=== PATIENT | female | born 1950 | race Caucasian/White ===

== ENCOUNTER 2016-10-22 12:12 | Inpatient (IN) | payer MEDICARE ==
--- NOTE | 2016-10-22 11:07 | MH ---
cc: FRANSISCO VERDIN M.D. DATE OF ADMISSION: 10/23/2016 ADMITTING DIAGNOSIS Avascular necrosis of the left hip. HISTORY This patient is a 66-year-old female who had a fall and sustained injury to her left hip. In July of 2012 she had open treatment, internal fixation of the left hip. She had this performed by the undersigned using a trochanteric nail. She had an x-ray that was taken afterwards that showed this apparently went on to heal with some shortening of the left leg compared to the right. She was recently seen with severe, increasing pain. X-ray from 19 September 2016 shows an intramedullary samia in good position. There is evidence of complete collapse of the femoral head consistent with avascular necrosis with collapse. She now presents for surgical treatment. PAST MEDICAL HISTORY, SOCIAL HISTORY, FAMILY HISTORY, REVIEW OF SYSTEMS See attached notes. PHYSICAL EXAMINATION GENERAL: Average build female appearing her stated age. HEENT: Normocephalic, atraumatic. Pupils equal, round, reactive to light and accommodation. Extraocular motions intact. NECK: Supple. CHEST: Clear. HEART: Regular rate and rhythm. ABDOMEN: Soft, nontender with normoactive bowel sounds. MUSCULOSKELETAL EXAMINATION: Well-healed incision laterally over the left hip. Alignment satisfactory. Shortening of the left leg compared to the right. Neurologic and vascular examination is within normal limits. VITAL SIGNS: Height 5.7, weight 150 pounds, BMI 23.5. IMPRESSION 1. Avascular necrosis of the left hip. 2. Status post open treatment, internal fixation left hip fracture in 2012. PLAN Removal of the hardware of the left hip and conversion to total hip replacement arthroplasty. CONSENT There are risks with surgery including infection, bleeding, loss of motion, continued pain, need for further surgery, neurologic and vascular injury. The patient understands these issues and wishes to press on with surgery as outlined above. MD EMI Romero/FRANKLIN /10:48 AM /11:05 AM
[2016-10-23 07:30] VITALS: BP 135/75; PULSE 60; RESP 16; TEMP 97.5; O2SAT 98
[2016-10-23] MEDS ORDERED: INSULIN HUMAN REGULAR 1,000 UNITS/10 ML VIAL SQ PRN (07:30)
[2016-10-23] MEDS ORDERED: LACTATED RINGER'S 1000 ML IV PRN (07:30)
[2016-10-23] MEDS ORDERED: VANCOMYCIN 1000 MG/NS 250 ML (for <70 kg) IV SCH ×2 (07:30)
[2016-10-23] MEDS ORDERED: POVIDONE IODINE 5% (ANTISEPSIS KIT) 4 APPLICATIONS EACH NARE PRN (07:30)
[2016-10-23] MEDS ORDERED: ceFAZolin 2 GM PREMIX 50 ML IV SCH (07:30)
[2016-10-23] MEDS ORDERED: CHLORHEXIDINE GLUCONATE 2 % 1 PACK (2 CLOTHS) TOPICAL PRN (07:30)
[2016-10-23] MEDS ORDERED: METOPROLOL TARTRATE 25 MG TAB PO PRN (07:30)
[2016-10-23] MEDS ORDERED: POVIDONE IODINE 7.5% SCRUB 118 ML BOTTLE TOPICAL SCH (07:30)
[2016-10-23] MEDS ORDERED: SODIUM CHLORID 0.9% 500 ML IV PRN (07:30)
[2016-10-23] MEDS ORDERED: ACETAMINOPHEN 1000 MG/100 ML VIAL IV ONE (08:45)
[2016-10-23] MEDS ORDERED: fentaNYL CITRATE 250 MCG/5 ML AMP ONE ×2 (08:46→13:41)
[2016-10-23] MEDS ORDERED: FAMOTIDINE 20 MG/2 ML VIAL ONE (08:46)
[2016-10-23] MEDS ORDERED: MIDAZOLAM HCL 2 MG/2 ML VIAL ONE (08:46)
[2016-10-23] MEDS ORDERED: DEXAMETHASONE SOD PHOS 4 MG/ML VIAL ONE (08:46)
[2016-10-23] MEDS ORDERED: TRANEXAMIC ACID INJ 670 MG in SODIUM CHLORIDE 0.9% INJ 100 ML IV SCH (09:00)
[2016-10-23] MEDS ORDERED: BUPIVACAINE LIPOSO PF 1.3% INJ 20 ML in SODIUM CHLORIDE 0.9% INJ 40 ML P-ARTICULR SCH (09:00)
[2016-10-23] MEDS ORDERED: ceFAZolin INJ 1,000 MG VIAL ONE (09:36)
[2016-10-23] MEDS ORDERED: GENTAMICIN SULFATE 80 MG/2 ML VIAL IRRIGATION ONE (10:20)
[2016-10-23] MEDS ORDERED: NORMOSOL R INJ 1,000 ML IV ONE (12:00)
[2016-10-23] MEDS ORDERED: PROPOFOL 200 MG/20 ML AMP IV ONE (12:00)
[2016-10-23] MEDS ORDERED: NEOSTIGMINE 3 MG/3 ML SYR IV ONE (12:00)
[2016-10-23] MEDS ORDERED: ONDANSETRON HCL 4 MG/2 ML VIAL IV PUSH ONE (12:00)
[2016-10-23] MEDS ORDERED: LACTATED RINGER'S 1000 ML INJ 2,000 ML IV ONE (12:00)
[2016-10-23] MEDS ORDERED: PHENYLEPH/NS 1000 MCG/10 ML SYR IV ONE (12:00)
[2016-10-23] MEDS ORDERED: MISCELLANEOUS PHARMACY INFORMATION XX ONE (12:15)
[2016-10-23] MEDS ORDERED: TEMAZEPAM 15 MG CAP PO PRN (12:15)
[2016-10-23] MEDS ORDERED: SODIUM CHLORIDE 0.9% FLUSH 5 ML FLUSH IVF PRN (12:15)
[2016-10-23] MEDS ORDERED: MISCELLANEOUS NURSING INFORMATION XX PRN (12:15)
[2016-10-23] MEDS ORDERED: Post-op Orders (for Pharmacy) MISC XX ONE (12:15)
[2016-10-23] MEDS ORDERED: ONDANSETRON HCL 4 MG/2 ML VIAL IVP PRN (12:15)
[2016-10-23] MEDS ORDERED: ALUMINUM/MAGNESIUM/SIMETH 30 ML CUP PO PRN (12:15)
[2016-10-23] MEDS ORDERED: ACETAMINOPHEN/HYDROcodone 325 MG/7.5 MG TAB PO PRN ×2 (12:15)
[2016-10-23] MEDS ORDERED: MORPHINE SULFATE 8 MG/ML INJ IM PRN (12:15)
--- NOTE | 2016-10-23 12:15 | PD.OP ---
cc: Steven Pierce MD Operative Report Date of Surgery: Oct 23, 2016 Preoperative Diagnosis: Avascular necrosis left hip. Status post open treatment internal fixation left femoral neck fracture. Leg length discrepancy Postoperative Diagnosis: Same Procedure: Extended posterior exposure. Removal of internal fixation of the left hip, trochanteric nail. Conversion to left uncemented total hip replacement arthroplasty Anesthesia: Gen. Surgeon: Steven Pierce Institutional Nutrition Consultant(s): KAREN Agustin Operation and Findings: EBL: 700 cc INDICATION: This patient is a 66-year-old female who 4-5 years ago had open treatment of her left hip for a base of the neck femoral neck fracture. This was treated with a trochanteric nail device. Some shortening process that the patient did well on the fracture went on to heal. The patient had progressive pain over a period of 6-8 months. Studies shows evidence of collapse of femoral head consistent with avascular necrosis. She presents now for conversion to total hip replacement arthroplasty. NOTE: Belkys Agustin PA-C was present for the entire surgical procedure as my digital sales assistant. In my medical opinion her skill and care was necessary for the proper management of this patient. COMPONENTS: COMPANY: [employer] CUP: [place], 56 mm, 100 series STEM: Size 9, [place], high offset, uncemented HEAD: 36 mm, +1.5 12/14 taper PROCEDURE: This patient was brought to the operating room and anesthetized in the supine position and positioned on the routine table in the clean air suite. The patient was then rolled to a left t side up lateral position and held with a Biomet hip positioner. The hip and leg was scrubbed with alcohol followed by Hibiclens followed by chloro prep and draped sterilely. A timeout was done and antibiotics were given within a routine time window. A 4 inch incision was made starting along the posterior one third of the greater trochanter. The iliotibial band was opened in line with the incision. The Charnley retractors were positioned. The posterior capsule and external rotators were taken down together in a sleeve. The sciatic nerve was palpated to be free of any obstruction or compression and posterior to the hip joint without any evidence of traction from the retractor. A trochanteric nail device had been utilized. Very carefully in the region of the greater trochanter worked very hard to gain access. A small posterior portion of the greater trochanter fatigued. The top compression device was loosened. The lateral screw was identified and carefully removed from the surrounding tissues. The trochanteric nail device was removed in a retrograde fashion. The neck was cut at the right location. The head was taken back table and sent to pathology. Deep retractors allowed good visualization. A capsulectomy was performed. The patient was short by an inch and a half. The acetabulum was deepened down to the floor starting with a 48 mm reamer and slowly progressively reamed up to 55 mm. A 55 mm cup was trialed. Overall fit was satisfactory. The rim was touched with a 56 mm reamer. The proper cup was placed in approximately 40 of abduction and 30 of forward flexion. The final liner was positioned. Retractors were positioned allowing good visualization of the proximal femur. A box osteotome was utilized followed by progressive broaching for the [place] stem. This was reamed and broached and eventually advanced to a size 9 stem. A trial reduction showed satisfactory stability. Offset was satisfactory. Leg length was reestablished. At 90 of flexion it was stable to 50 of internal rotation. The hip could not be subluxed anteriorly. The canal was irrigated copiously. Hemostasis was controlled. The final stem was inserted in approximately 20 of anteversion. The final head was impacted. The hip was reduced and stability, offset and leg length was as previously noted. Multiple drill holes were placed within the small portion of the trochanter posteriorly. This was tied with multiple #2 FiberWire cement had a very secure fixation. The rest of the abductors were totally unremarkable. The posterior capsule and external rotators were repaired through bone with interrupted #2 Tycron sutures. The piriformis muscle was repaired with the same. The iliotibial band with interrupted #1 Vicryl sutures. Subcutaneous tissue was approximated with 2-0 Vicryl suture and skin with running intradermal 3-0 Vicryl followed by Steri-Strips and benzoin. A sterile dressing was applied.. The sponge count needle counts and instrument counts were all correct. The patient was awakened and taken to the recovery room in satisfactory condition FINDINGS: The patient had evidence avascular necrosis with collapse. The rods position was such that it was difficult to remove without compromising some of the greater trochanter. A small fatigue area posteriorly was reinforced with # 2 fiber wires. The final solution was excellent. The hip was very stable. No comp location was appreciated. Steven Pierce MD Oct 23, 2016 12:15
[2016-10-23] MEDS ORDERED: HYDR-3580 PO (12:18)
[2016-10-23] MEDS ORDERED: XARE10TA PO (12:18)
[2016-10-23] MEDS ORDERED: DO NOT ADM ANY ANTICOAGULANT DRUGS PRN (12:49)
[2016-10-23] MEDS: LACTATED RINGER'S 1000 ML INJ 1,000 ML IV SCH (13:00)
[2016-10-23 13:05] LABS: HEMATOCRIT 27.5 % (35.0-46.0); REVIEW FLAG FINAL
[2016-10-23] MEDS ORDERED: *morphine SULFATE 8 MG/ML PERIprocedure ONLY ONE (14:36)
--- NOTE | 2016-10-23 14:49 | RADRPT ---
EXAM DATE/TIME: 10/23/2016 14:24 [place] COMPARISON: No previous studies available for comparison. INDICATIONS : Post op left hip. MEDICAL HISTORY : Unobtainable. SURGICAL HISTORY : Unobtainable. ENCOUNTER: Initial ACUITY: 1 day PAIN SCORE: Non-responsive. LOCATION: Left hip. FINDINGS: A two view examination of the left hip was performed. 2 intraoperative views demonstrates a left tota l hip arthroplasty in good position. There is no complication CONCLUSION: Left hip arthroplasty without complication. Surjit Pearson MD on October 23, 2016 at 14:48 Board Certified Radiologist. This report was verified electronically.
[2016-10-23] MEDS ORDERED: *ONDANSETRON 4 MG VIAL PERIprocedural Use ONLY ONE (16:50)
[2016-10-23 17:30] VITALS: BP 118/60; PULSE 98; RESP 17; TEMP 98.1; O2SAT 99
[2016-10-23 20:15] VITALS: BP 100/53; PULSE 80; RESP 16; TEMP 97; O2SAT 98
[2016-10-23] MEDS: SENNOSIDES 8.6 MG TAB PO SCH (20:20)
[2016-10-23] MEDS: MAGNESIUM HYDROXIDE SUSP 30 ML CUP PO SCH (20:20)
[2016-10-23] MEDS: SODIUM CHLORIDE 0.9% FLUSH 5 ML FLUSH IVF SCH (20:20)
[2016-10-24] VITALS (7 sets, daily range): BP systolic 97–130; BP diastolic 50–59; PULSE 80–98; RESP 16–17; TEMP 97.5–98.9; O2SAT 96–99
[2016-10-24] MEDS: LACTATED RINGER'S 1000 ML INJ 1,000 ML IV SCH ×2 (04:20→14:00)
[2016-10-24 07:39] LABS: REVIEW FLAG FINAL
[2016-10-24] MEDS: SODIUM CHLORIDE 0.9% FLUSH 5 ML FLUSH IVF SCH ×2 (09:00→20:23)
[2016-10-24] MEDS: MAGNESIUM HYDROXIDE SUSP 30 ML CUP PO SCH ×2 (09:10→20:16)
[2016-10-24] MEDS: RIVAROXABAN 10 MG TAB PO SCH (12:53)
[2016-10-24] MEDS ORDERED: WALKER WHEELS/F1 MIS (12:54)
[2016-10-24] MEDS ORDERED: COMMODE 3-IN-11 MIS (12:55)
--- NOTE | 2016-10-24 12:56 | HHI.FF ---
Face to Face Verification Diagnosis: (1) Left hip pain (2) Osteoarthritis of left hip (3) Mechanical complic of internal orthopedic device, implant or graft (4) Avascular necrosis of bone of left hip Physical Therapy Gait training, Safety evaluation, Transfer training, bed to chair Hip: Total hip, Protocol: Left, Abduction pillow while in bed, Progress to weight bearing Additional Instructions PT 4 days/wk for 2 weeks. WBAT LLE. Posterior FABRIZIO precautions. Abd pillow when in bed. Gait training. Nursing RN Days per Week: 2 x Week(s): 1 Dressing Changes: Do not change dressing Additional Instructions Hold dressing changes unless saturated. Vitals assessment I have seen patient Noemí Patricio on 10/24/16. My clinical findings support the need for the requested home health care services because: Limited ability to care for self High risk of falls I certify that my clinical findings support that this patient is homebound because: Post-op weakness Unsteady gait/balance Lis Shaver Oct 24, 2016 12:56
--- NOTE | 2016-10-24 12:58 | PD.ORT.PN ---
Subjective Subjective Remarks Doing well with her left hip. States her pain is 'no more than a 3 / 10'. Pleased overall. No new radiating leg pain below her knee. No CP or SOB. Many questions about surgery and her prosthesis. Objective Vitals Vital Signs Date Time Temp Pulse Resp B/P Pulse Ox O2 Delivery O2 Flow Rate FiO2 10/24/16 11:49 98.0 90 16 112/52 99 10/24/16 09:43 97 21 10/24/16 07:20 98.9 81 16 115/55 96 10/24/16 04:29 98.2 82 17 109/53 96 10/24/16 00:20 97.7 80 17 97/50 96 10/23/16 20:50 21 10/23/16 20:15 97.0 80 16 100/53 98 10/23/16 17:30 98.1 98 17 118/60 99 10/23/16 16:45 77 20 103/57 95 Room Air 10/23/16 16:00 80 20 100/56 97 Room Air 10/23/16 15:00 85 20 86/51 93 Room Air 10/23/16 14:00 77 20 102/55 100 Room Air 10/23/16 13:45 75 20 105/58 100 Room Air 10/23/16 13:30 73 20 105/60 100 Room Air 10/23/16 13:15 75 20 102/59 100 Nasal Cannula 2 10/23/16 13:00 75 20 111/59 100 Nasal Cannula 2 I/O 10/23/16 10/23/16 10/23/16 10/24/16 10/24/16 10/24/16 07:00 15:00 23:00 07:00 15:00 23:00 Intake Total 3275 ml 1124 ml 988 ml Output Total 1300 ml 525 ml 350 ml Balance 1975 ml 599 ml 638 ml Intake Oral 240 ml 240 ml IV Total 275 ml 884 ml 748 ml Other 3000 ml Output Urine Total 400 ml 525 ml 350 ml Estimated Blood Loss 900 ml # Bowel Movements 0 0 Result Diagram: 10/24/16 0716 Objective Remarks Laying in bed, NAD VSS LLE Dressing c/d/i, no new drainage, mild swelling, no erythema +motor at, +sens, +nvi thigh and calf both supple , neg homans Assessment & Plan Ortho Post Op Day #: 1 Problem List: Assessment and Plan pod#1 s/p Conversion L FABRIZIO, posterior approach (prev IM samia) 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 Hold dressing changes unless saturated. PT - WBAT LLE. Posterior fabrizio precautions. Xarelto 10mg qd. IS encouraged. Ice left hip and thigh. D/C planning, likely [facility] tomorrow. Lis Shaver Oct 24, 2016 12:58
--- NOTE | 2016-10-24 12:59 | HHI.DCPOC ---
Discharge Care Plan Diagnosis: (1) Avascular necrosis of bone of left hip (2) Mechanical complic of internal orthopedic device, implant or graft (3) Left hip pain (4) Osteoarthritis of left hip Your Health Problems Are: Incision/Drains Inflammation Goals to Promote Your Health * To prevent worsening of your condition and complications * To maintain your health at the optimal level Directions to Meet Your Goals Take your medications as prescribed Follow your dietary instruction Follow activity as directed Keep your appointments as scheduled Take your immunizations and boosters as scheduled If your symptoms worsen call your PCP, if no PCP go to Urgent Care Center or Emergency Room Smoking is Dangerous to Your Health. Avoid second hand smoke Call the 24-hour hour crisis hotline for domestic abuse at Lis Shaver Oct 24, 2016 12:59
[2016-10-24] MEDS: SENNOSIDES 8.6 MG TAB PO SCH (20:16)
[2016-10-25 00:25] VITALS: BP 116/55; PULSE 95; RESP 17; TEMP 99.8; O2SAT 98
[2016-10-25] MEDS: LACTATED RINGER'S 1000 ML INJ 1,000 ML IV SCH (01:48)
[2016-10-25 07:50] VITALS: BP 114/58; PULSE 95; RESP 16; TEMP 97.8; O2SAT 96
--- NOTE | 2016-10-25 08:41 | HHI.DS ---
Discharge Summary Admission Date Oct 23, 2016 at 06:55 Discharge Date: Oct 25, 2016 Admitting Diagnosis see below Diagnosis: (1) Mechanical complic of internal orthopedic device, implant or graft Diagnosis: Principal (2) Avascular necrosis of bone of left hip Diagnosis: Principal (3) Left hip pain Diagnosis: Principal (4) Osteoarthritis of left hip Diagnosis: Principal Procedures Removal hardware and conversion to left total hip arthroplasty, posterior approach Brief History This is a 66 year old female patient with a history of left hip fracture treated with IM samia 4 years ago. She did well for almost 3 years when she began having increased pain. 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 She sought out medical treatment and imaging which showed avn and osteoarthritis of the left hip. Conservative measures were pursued for a short period of time but she declined rapidly. Eventually surgical treatment was recommended in the form of removal hardware and conversion to left total hip arthroplasty. She agreed and presents for the above. CBC/BMP: 10/24/16 0716 Significant Findings Laboratory Tests Test 10/23/16 10/24/16 12:20 07:16 Hemoglobin 9.2 GM/DL 7.5 GM/DL (11.6-15.3) (11.6-15.3) Hematocrit 27.5 % 22.0 % (35.0-46.0) (35.0-46.0) PE at Discharge Laying in bed, NAD VSS LLE Dressing c/d/i, no new drainage, mild swelling, no erythema +motor at, +sens, +nvi thigh and calf both supple , neg [facility] Hospital Course Surgical treatment was performed on the day of admission without complication. She recovered well in pacu and was transferred to the orthopaedic floor. Pain was controlled with IV and oral medications. DVT prophylaxis was initiated pod# 1 with xarelto. She was compliant with physical therapy and all restrictions. After 2 days she was found to be stable and discharged home with home health care. She was instructed to continue PT, continue her xarelto for 25 days and to pursue a high fiber diet for 3-5 days. Pt Condition on Discharge: Stable Discharge Disposition: Disch w/ Home Health Serv Discharge Instructions Diet Instructions: As Tolerated, No Restrictions, High Fiber Diet Activities You Can Perform: Toe Touch Weight Bearing Activities to Avoid: Strenuous Activity Additional Activity Instruc.: Posterior moshe precautions New Medications: Commode 3-in-1 (Commode 3-in-1) 1 Mis Mis 1 EA .ROUTE DIRECTED #1 Ref 0 EA Walker with Front Wheels (Walker with Front Wheels) 1 Mis Mis 1 EA .ROUTE DIRECTED #1 Ref 0 EA Hydrocodone-Acetaminophen (Hydrocodone-Acetaminophen) 7.5-325 mg Tab 1 TAB PO Q4H PRN PAIN LESS THAN 5 ON SCALE #50 TAB Rivaroxaban (Xarelto) 10 Mg Tab 10 MG PO Q24H Prevent Blood Clot #25 TAB Lis Shaver Oct 25, 2016 08:41
--- NOTE | 2016-10-25 08:43 | PD.ORT.PN ---
Subjective Subjective Remarks She continues to do very well with her left hip. Yesterday she stated her pain was 'no more than a 3 / 10' and today she states it 'is even better'. She continues to be pleased. No new radiating leg pain below her knee. No CP or SOB. Ok to d/c home w [facility] today. She states her in unsure about her discharge today. Objective Vitals Vital Signs Date Time Temp Pulse Resp B/P Pulse Ox O2 Delivery O2 Flow Rate FiO2 10/25/16 07:50 97.8 95 16 114/58 96 10/25/16 00:25 99.8 95 17 116/55 98 10/24/16 20:35 97.5 98 17 130/58 97 10/24/16 15:30 98.0 94 16 117/59 97 10/24/16 11:49 98.0 90 16 112/52 99 10/24/16 09:43 97 21 I/O 10/24/16 10/24/16 10/24/16 10/25/16 10/25/16 10/25/16 07:00 15:00 23:00 07:00 15:00 23:00 Intake Total 988 ml 720 ml 240 ml 120 ml Output Total 350 ml 600 ml Balance 638 ml 120 ml 240 ml 120 ml Intake Oral 240 ml 720 ml 240 ml 120 ml IV Total 748 ml Output Urine Total 350 ml 600 ml # Voids 4 1 2 # Bowel Movements 0 0 0 0 Result Diagram: 10/24/16 0716 Procedures Removal hardware and conversion to left total hip arthroplasty, posterior approach Objective Remarks Sitting up in chair applying makeup, NAD VSS LLE Dressing c/d/i, no new drainage, mild swelling, no erythema +motor at, +sens, +nvi thigh and calf both supple , neg homans Assessment & Plan Ortho Post Op Day #: 2 Problem List: (1) Mechanical complic of internal orthopedic device, implant or graft (2) Avascular necrosis of bone of left hip (3) Left hip pain (4) Osteoarthritis of left hip Assessment and Plan pod#2 s/p Conversion L FABRIZIO, posterior approach (prev IM samia) Ortho stable. Ok to d/c home w [facility] today after PT. PO pain meds. Hold dressing changes unless saturated. PT - WBAT LLE. Posterior fabrizio precautions. Xarelto 10mg qd. IS encouraged. Ice left hip and thigh. F/U in 2 weeks as scheduled. F2F written. Lis Shaver Oct 25, 2016 08:43
[2016-10-25] MEDS: SODIUM CHLORIDE 0.9% FLUSH 5 ML FLUSH IVF SCH (08:45)
[2016-10-25] MEDS: MAGNESIUM HYDROXIDE SUSP 30 ML CUP PO SCH (08:45)
[2016-10-25 12:01] VITALS: BP 100/54; PULSE 100; RESP 16; TEMP 98.1; O2SAT 97
[2016-10-25] MEDS: RIVAROXABAN 10 MG TAB PO SCH (12:18)
== END 2016-10-25 12:25 | disposition home health service (06) | DRG 470 ==
LOC: HSDI 10-23 06:55 → N06A 10-23 17:14
PROVIDERS: ADMIT Orthopaedic Surgery Orthopaedic Surgery of the Spine; ATTEND Orthopaedic Surgery Orthopaedic Surgery of the Spine
PROC: 0QP704Z Removal of Internal Fixation Device from Left Upper Femur, Open Approach (ICD-10-PCS; 2016-10-23)
PROC: 0SRB0JA Replacement of Left Hip Joint with Synthetic Substitute, Uncemented, Open Approach (ICD-10-PCS; principal; 2016-10-23 09:11)
DX: M87.852 Other osteonecrosis, left femur (principal); T84.195A Other mechanical complication of internal fixation device of left femur, initial encounter; M16.12 Unilateral primary osteoarthritis, left hip; M21.70 Unequal limb length (acquired), unspecified site; Z87.820 Personal history of traumatic brain injury
CPT/HCPCS: 73502; 85014; 85018; 86850; 86890; 86900; 86901; 86920; 88304; 88305; 88311; 94150; C1776; C9290; J0131; J0690; J1100; J1580; J2250; J2270; J2370; J2405; J2710; J3010; J3370; J7050; J7120